=== PATIENT | male | born 1995 | race Caucasian/White ===

== ENCOUNTER 2016-11-02 01:21 | Emergency (ER) | payer OTHER ==
--- NOTE | 2016-11-02 02:38 | ED ---
Laceration/Wound HPI - HPI Summary HPI Summary: 21M presents with laceration to right arm. He is unsure how it happened. He states he was dancing too hard. He denies any head injury or LOC. His friend states he found him with the laceration. He denies any numbness or tingling. His immunizations are up to date. He denies any pain except in his arm. He has abrasion to his knee. He has been drinking. - History of Current Complaint Stated Complaint: ARM LAC Time Seen by Provider: 11/02/16 01:52 Pain Intensity: 0 - Allergy/Home Medications Allergies/Adverse Reactions: Allergies Allergy/AdvReac Type Severity Reaction Status Date / Time No Known Allergies Allergy Verified 11/02/16 01:30 PMH/Surg Hx/FS Hx/Imm Hx Endocrine/Hematology History: Denies: Hx Anticoagulant Therapy Cardiovascular History: Denies: Hx Hypertension Infectious Disease History: No Infectious Disease History: Denies: Traveled Outside the [place] in Last 30 Days - Family History Known Family History: Negative: Cardiac Disease - Social History Alcohol Use: Weekly Substance Use Type: Reports: None Smoking Status (MU): Never Smoked Tobacco Review of Systems Negative: Fever Negative: Chest Pain Negative: Shortness Of Breath Positive: Other - right arm laceration All Other Systems Reviewed And Are Negative: Yes Physical Exam Triage Information Reviewed: Yes Vital Signs On Initial Exam: Initial Vitals Temp Pulse Resp BP Pulse Ox 98.2 F 78 16 136/71 97 11/02/16 01:26 11/02/16 01:26 11/02/16 01:26 11/02/16 01:26 11/02/16 01:26 Vital Signs Reviewed: Yes Appearance: Positive: Well-Appearing Skin: Positive: Warm, Dry, Other - 6cm by 4cm on right upper arm on posterior aspect Head/Face: Positive: Normal Head/Face Inspection, Other - no step off, raccoon eyes, inman sign Eyes: Positive: Normal, EOMI, CARLI, Conjunctiva Clear ENT: Positive: Normal ENT inspection, Pharynx normal, TMs normal Respiratory/Lung Sounds: Positive: Clear to Auscultation, Breath Sounds Present Cardiovascular: Positive: Normal, RRR Musculoskeletal: Positive: Strength/ROM Intact - right arm, Other - good pulses , capillary refill<2secs Neurological: Positive: Sensory/Motor Intact, Alert, Oriented to Person Place, Time, CN Intact II-III Procedures - Laceration/Wound Repair 1 Location: Other - right arm Description: Linear Anesthesia: Local, 1.0%, Epi Length, Depth and Shape: 6cm by 4cm by 1 cm deep Betadine Prep?: Yes Irrigated w/ Saline (ccs): 1,000 Laceration/Wound Explored: no foreign body removed Closure: Multilayer, Misbah #__ - 10 Suture Type: Chromic Number of Sutures: 3 Layer Closure?: Yes Diagnostics - Vital Signs Vital Signs Temp Pulse Resp BP Pulse Ox 11/02/16 01:26 98.2 F 78 16 136/71 97 - Laboratory Lab Statement: Any lab studies that have been ordered have been reviewed, and results considered in the medical decision making process. Laceration Repair Course/Dx - Course Course Of Treatment: 21M presents with laceration to right arm. He is unsure how it happened. He states he was dancing too hard. He denies any head injury or LOC. His friend states he found him with the laceration. He denies any numbness or tingling. His immunizations are up to date. He denies any pain except in his arm. He has abrasion to his knee. He has been drinking. on exam normal neuro exam and no step off of evidence of head injury. has 6cm by 4cm laceration that placed 10 misbah and 3 deep sutures. warned of signs of head injury to return to ED. patient understands and agrees with plan. - Differential Dx Differental Diagnoses: Abrasion, Avulsion, Laceration - Clinical Impression Provider Diagnoses: Laceration of right upper arm Discharge - Discharge Plan Condition: Good Disposition: HOME Patient Education Materials: Staple Care (ED) Referrals: No Primary Care Phys,NOPCP [Primary Care Provider] - Additional Instructions: Take Tylenol or ibuprofen for pain Avoid soaking area and to not pick at laceration Return to ED or IC in 10-14 days to have misbah removed Return to ED if develop signs of infection such as fever, spreading redness, or pus.
[2016-11-02 02:52] VITALS: BP 102/48
== END 2016-11-02 02:48 | disposition home or self-care (01) ==
LOC: ED 01:21
DX: S41.111A Laceration without foreign body of right upper arm, initial encounter (principal); X58.XXXA Exposure to other specified factors, initial encounter; Y93.41 Activity, dancing; Y92.9 Unspecified place or not applicable
CPT/HCPCS: 12002; 99282

== ENCOUNTER 2017-11-11 15:12 | Emergency (ER) | payer OTHER ==
[2017-11-11] MEDS ORDERED: NS 0.9% 1000 ML* 1,000 ML IV ONE (15:26)
[2017-11-11] MEDS ORDERED: Morphine VIAL* 10 MG/ML 1 ML VIAL IV ONE (15:35)
[2017-11-11] MEDS ORDERED: Ondansetron INJ* 2 MG/ML VIAL IV ONE (15:36)
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
[2017-11-11 15:38] LABS: ABS Basophils 0 10^3/ul (0-0.2); ABS Eosinophils 0.1 10^3/ul (0-0.6); ABS Lymphocytes 1.2 10^3/ul (1.0-4.8); ABS Monocytes 0.5 10^3/ul (0-0.8); ABS Neutrophils 5.8 10^3/ul (1.5-7.7); ABS Nucleated RBC 0 10^3/ul; Eosinophil % 0.9 % (0-6); Hematocrit 44 % (42-52); Lymphocyte % 15.7 % (25-47); Mean Corpuscular HGB Conc 34 g/dl (31-36); Mean Corpuscular Hemoglobin 32 pg (27-31); Mean Corpuscular Volume 95 fL (80-94); Mean Platelet Volume 7.7 um3 (7.4-10.4); Nucleated Red Blood Cells % 0; Platelet Count 296 10^3/ul (150-450); Red Blood Count 4.67 10^6/ul (4.00-5.40); Red Cell Distribution Width 13 % (10.5-15); White Blood Count 7.6 10^3/ul (3.5-10.8)
[2017-11-11] MEDS ORDERED: fentaNYL* 50 MCG/ML 2 ML VIAL (100 MCG VIAL) IV SLOW PU ONE ×2 (15:41→17:17)
[2017-11-11] MEDS ORDERED: fentaNYL* 50 MCG/ML 2 ML VIAL (100 MCG VIAL) ONE (15:43)
[2017-11-11] MEDS ORDERED: Iodixanol* (CONTRAST) 320 MG/ML 100 ML SDV IV ONE (15:45)
[2017-11-11 15:46] LABS: INR 0.89 (0.77-1.02)
[2017-11-11 15:58] LABS: EGFR Non-African American 65.6 (>60)
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
[2017-11-11 17:38] LABS: Urine Appearance Clear; Urine Blood Negative (Negative); Urine Color Yellow; Urine Ketones Negative (Negative); Urine Protein 1+(30 mg/dL) (Negative); Urine Red Blood Cell 2+(6-10/hpf) (Absent); Urine Specific Gravity 1.043 (1.010-1.030); Urine Urobilinogen Negative (Negative); Urine White Blood Cell Trace(0-5/hpf) (Absent)
[2017-11-11 18:24] VITALS: BP 126/85
--- NOTE | 2017-11-12 07:37 | RAD ---
INDICATION: Fall. Coughing blood COMPARISON: Bone TECHNIQUE: An AP portable view obtained at 1535 hours is submitted. FINDINGS: Bones/Soft Tissues: There are no acute bony findings. Cardiomediastinal: The cardiomediastinal silhouette is normal. Lungs: There are no infiltrates. There is no pneumothorax. Pleura: There are no pleural effusions. Other: None IMPRESSION: NEGATIVE CHEST X-RAY. (PLEASE REFER ALSO TO CT OF THE CHEST FROM SAME DATE) R1
== END 2017-11-11 18:32 | disposition short-term general hospital (02) ==
LOC: ED 15:12
DX: R04.2 Hemoptysis (principal); S27.329A Contusion of lung, unspecified, initial encounter; M54.9 Dorsalgia, unspecified; R05 Cough; W19.XXXA Unspecified fall, initial encounter; Y92.9 Unspecified place or not applicable
CPT/HCPCS: 36415; 70450; 71045; 71260; 72125; 74177; 80053; 81003; 81015; 83605; 83690; 84484; 85025; 85610; 87086; 93005; 96374; 96375; 99284; J2405; J3010; Q9967

== ENCOUNTER 2018-01-24 15:00 | Emergency (ER) | payer OTHER ==
[2018-01-24 15:10] VITALS: BP 159/90
[2018-01-24] MEDS ORDERED: Lidocaine 1%* 5 ML VIAL INJ ONE (15:29)
[2018-01-24] MEDS ORDERED: Tetan/Diph/Pertus SYR(Tdap)* 0.5 ML SYR(BOOSTRIX) use SYR IM ONE (15:59)
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
[2018-01-24] MEDS ORDERED: Mupirocin 2% OINT* TUBE TOPICAL ONE (16:07)
== END 2018-01-24 16:21 | disposition home or self-care (01) ==
LOC: UCEAST 15:00
DX: S01.81XA Laceration without foreign body of other part of head, initial encounter (principal); Z88.5 Allergy status to narcotic agent; X58.XXXA Exposure to other specified factors, initial encounter; Y93.63 Activity, rugby; Y92.9 Unspecified place or not applicable
CPT/HCPCS: 12011; 90471; 90715; 99212; G0463